=== PATIENT | female | born 1965 | race Caucasian/White ===

== ENCOUNTER 2017-09-16 19:03 | Inpatient (IN) | payer BC ==
[2017-09-16] MEDS: PROMETHAZINE 25 MG in IV NORMAL SALINE 50ML 50 ML IV (19:50)
[2017-09-16] MEDS: IV NORMAL SALINE 1000ML BAG 1,000 ML IV ×2 (19:55→21:21)
[2017-09-16 20:05] LABS: ADD MAN DIFF? NO
[2017-09-16 20:10] LABS: BASO % 0 % (0-3); EOS # 0.1 x10^3/uL (0.0-0.7); EOS % 3 % (0-3); HEMATOCRIT 40.5 % (36.0-47.0); HEMOGLOBIN 13.7 g/dL (12.0-15.5); LYMPH # 0.7 x10^3/uL (1.0-4.8); LYMPH % 17 % (24-48); MEAN CORPUSCULAR HEMOGLOBIN 28 pg (25-35); MEAN CORPUSCULAR HGB CONC 34 g/dL (31-37); MEAN CORPUSCULAR VOLUME 82 fL (79-100); MONO # 0.4 x10^3/uL (0.0-1.1); MONO % 11 % (0-9); NEUT # 2.9 x10^3uL (1.8-7.7); NEUT % 69 % (31-73); PLATELET COUNT 107 x10^3/uL (140-400); RED BLOOD COUNT 4.92 x10^6/uL (3.50-5.40); WHITE BLOOD COUNT 4.3 x10^3/uL (4.0-11.0)
[2017-09-16 20:11] LABS: BILIRUBIN,URINE SMALL (NEG); CLARITY,URINE CLEAR; COLOR,URINE YELLOW; GLUCOSE,URINE NEGATIVE (NEG); NITRITE,URINE NEGATIVE (NEG); PROTEIN,URINE NEGATIVE (NEG-TRACE)
[2017-09-16 20:17] LABS: INR 1.1 (0.8-1.1); PROTHROMBIN TIME PATIENT 13.2 SEC (11.7-14.0)
[2017-09-16 20:19] LABS: ANION GAP 8 (6-14); BLOOD UREA NITROGEN 12 mg/dL (7-20); CALCIUM 9.2 mg/dL (8.5-10.1); CARBON DIOXIDE 27 mmol/L (21-32); CHLORIDE 100 mmol/L (98-107); CREATININE 0.8 mg/dL (0.6-1.0); GLUCOSE 119 mg/dL (70-99); SODIUM 135 mmol/L (136-145)
[2017-09-16 20:24] LABS: BACTERIA,URINE FEW /HPF (0-FEW); HYALINE CASTS, URINE FEW /HPF; SQUAMOUS EPITHELIAL CELL,UR MOD /LPF
[2017-09-16 20:25] LABS: TROPONINI 0.318 ng/mL (0.000-0.055)
[2017-09-16 20:25] LABS: ALBUMIN 3.3 g/dL (3.4-5.0); ALK PHOS 140 U/L (46-116); ALT (SGPT) 54 U/L (14-59); AST (SGOT) 38 U/L (15-37); DIRECT BILIRUBIN 0.2 mg/dL (0.0-0.2); LIPASE 92 U/L (73-393); MAGNESIUM 1.9 mg/dL (1.8-2.4); TOTAL BILIRUBIN 0.7 mg/dL (0.2-1.0); TOTAL PROTEIN 7.2 g/dL (6.4-8.2)
[2017-09-16 20:34] LABS: NT-PRO BNP 175 pg/mL (0-124)
[2017-09-16 20:35] LABS: CKMB MASS < 0.5 ng/mL (0.0-3.6); CREATINE KINASE 33 U/L (26-192)
[2017-09-16] MEDS: IOHEXOL 300 MG/ML 100ML VIAL. IV (20:41)
[2017-09-16] MEDS ORDERED: CONTRAST GIVEN MC (20:45)
[2017-09-16] MEDS: diphenhydrAMINE 50 MG/ML VIAL IVP (21:21)
[2017-09-16] MEDS: PROCHLORPERAZINE 10 MG/2 ML VIAL. IV (21:21)
[2017-09-16] MEDS: fentaNYL PF VIAL 100 MCG/2 ML VIAL IV ×2 (21:58→23:02)
[2017-09-17] MEDS: fentaNYL PF VIAL 100 MCG/2 ML VIAL IV (01:47)
[2017-09-17 02:23] LABS: TROPONINI 0.308 ng/mL (0.000-0.055)
[2017-09-17 05:07] LABS: ADD MAN DIFF? NO
[2017-09-17 05:20] LABS: BASO % 1 % (0-3); EOS # 0.1 x10^3/uL (0.0-0.7); EOS % 2 % (0-3); HEMATOCRIT 36.5 % (36.0-47.0); HEMOGLOBIN 12.3 g/dL (12.0-15.5); LYMPH # 0.9 x10^3/uL (1.0-4.8); LYMPH % 23 % (24-48); MEAN CORPUSCULAR HEMOGLOBIN 28 pg (25-35); MEAN CORPUSCULAR HGB CONC 34 g/dL (31-37); MEAN CORPUSCULAR VOLUME 83 fL (79-100); MONO # 0.5 x10^3/uL (0.0-1.1); MONO % 13 % (0-9); NEUT # 2.4 x10^3uL (1.8-7.7); NEUT % 62 % (31-73); PLATELET COUNT 94 x10^3/uL (140-400); WHITE BLOOD COUNT 3.9 x10^3/uL (4.0-11.0)
[2017-09-17 05:47] LABS: ALBUMIN/GLOBULIN RATIO 0.8 (1.0-1.7); ALK PHOS 120 U/L (46-116); ALT (SGPT) 46 U/L (14-59); ANION GAP 6 (6-14); AST (SGOT) 29 U/L (15-37); BLOOD UREA NITROGEN 9 mg/dL (7-20); BUN/CREATININE RATIO 15 (6-20); CALCIUM 8.6 mg/dL (8.5-10.1); CARBON DIOXIDE 28 mmol/L (21-32); CHLORIDE 103 mmol/L (98-107); CREATININE 0.6 mg/dL (0.6-1.0); GFR 104.6; GLUCOSE 110 mg/dL (70-99); POTASSIUM 4.1 mmol/L (3.5-5.1); SODIUM 137 mmol/L (136-145); TOTAL BILIRUBIN 0.6 mg/dL (0.2-1.0); TOTAL PROTEIN 6.9 g/dL (6.4-8.2)
[2017-09-17 05:57] LABS: TROPONINI 0.325 ng/mL (0.000-0.055)
[2017-09-17] MEDS: IV NORMAL SALINE 1000ML BAG 1,000 ML IV (15:00)
[2017-09-17] MEDS: cefTRIAXone IV Push 1 GM VIAL. IVP (15:17)
[2017-09-17] MEDS: PANTOPRAZOLE 40 MG TABLET.DR. PO (17:37)
[2017-09-17] MEDS: LACTOBACILLUS RHAMNOSUS GG 1 CAPSULE. PO (20:55)
[2017-09-18] MEDS: fentaNYL PF VIAL 100 MCG/2 ML VIAL IV (02:33)
[2017-09-18] MEDS: IV NORMAL SALINE 1000ML BAG 1,000 ML IV (02:35)
[2017-09-18 05:22] LABS: ADD MAN DIFF? NO
[2017-09-18 05:28] LABS: BASO % 0 % (0-3); EOS # 0.1 x10^3/uL (0.0-0.7); EOS % 2 % (0-3); HEMATOCRIT 36.5 % (36.0-47.0); HEMOGLOBIN 12.5 g/dL (12.0-15.5); LYMPH # 1.2 x10^3/uL (1.0-4.8); LYMPH % 20 % (24-48); MEAN CORPUSCULAR HEMOGLOBIN 28 pg (25-35); MEAN CORPUSCULAR HGB CONC 34 g/dL (31-37); MEAN CORPUSCULAR VOLUME 82 fL (79-100); MONO # 0.6 x10^3/uL (0.0-1.1); MONO % 10 % (0-9); NEUT # 3.9 x10^3uL (1.8-7.7); NEUT % 67 % (31-73); PLATELET COUNT 110 x10^3/uL (140-400); RED BLOOD COUNT 4.46 x10^6/uL (3.50-5.40); RED CELL DISTRIBUTION WIDTH 13.5 % (11.5-14.5); WHITE BLOOD COUNT 5.8 x10^3/uL (4.0-11.0)
[2017-09-18 05:42] LABS: ANION GAP 10 (6-14); BLOOD UREA NITROGEN 7 mg/dL (7-20); CALCIUM 8.4 mg/dL (8.5-10.1); CARBON DIOXIDE 27 mmol/L (21-32); CHLORIDE 101 mmol/L (98-107); CREATININE 0.6 mg/dL (0.6-1.0); GFR 104.6; GLUCOSE 108 mg/dL (70-99); POTASSIUM 3.7 mmol/L (3.5-5.1); SODIUM 138 mmol/L (136-145)
[2017-09-18 06:58] LABS: SEDIMENTATION RATE 30 (0-25)
[2017-09-18] MEDS: LACTOBACILLUS RHAMNOSUS GG 1 CAPSULE. PO ×2 (08:19→20:57)
[2017-09-18] MEDS: PANTOPRAZOLE 40 MG TABLET.DR. PO (08:19)
[2017-09-18] MEDS: METOPROLOL TART IMMED RELEASE 25 MG TABLET. PO ×2 (08:55→20:57)
[2017-09-18] MEDS: dilTIAZem IV PUSH 25 MG/5 ML VIAL IVP ×2 (10:40→11:37)
[2017-09-18] MEDS: IV NORMAL SALINE 500ML BAG 500 ML IV (11:15)
[2017-09-18] MEDS: cefTRIAXone IV Push 1 GM VIAL. IVP (13:27)
[2017-09-18] MEDS: AMIODARONE 150 MG in IV DEXTROSE 5% 100 ML IV (14:00)
[2017-09-18] MEDS: AMIODARONE 900 MG in IV DEXTROSE 5% 500 ML IV (14:03)
[2017-09-18] MEDS ORDERED: diphenhydrAMINE 50 MG/ML VIAL IM (14:15)
[2017-09-18] MEDS: HYDROCORTISONE SOD SUCC/PF 100 MG/2 ML VIAL. IV (14:19)
[2017-09-18] MEDS: diphenhydrAMINE 50 MG/ML VIAL IVP (14:25)
[2017-09-18] MEDS: DIGOXIN IV 500 MCG/2 ML AMPUL. IV ×2 (14:29→18:14)
[2017-09-19] MEDS: IV NORMAL SALINE 1000ML BAG 1,000 ML IV (02:50)
[2017-09-19] MEDS: PANTOPRAZOLE 40 MG TABLET.DR. PO (08:27)
[2017-09-19] MEDS: METOPROLOL TART IMMED RELEASE 25 MG TABLET. PO ×2 (08:27→20:59)
[2017-09-19] MEDS: LACTOBACILLUS RHAMNOSUS GG 1 CAPSULE. PO ×2 (08:27→20:59)
[2017-09-19] MEDS: DIGOXIN 125 MCG TABLET. PO (08:28)
[2017-09-19] MEDS: PROCHLORPERAZINE 10 MG/2 ML VIAL. IV ×2 (08:32→18:24)
[2017-09-19] MEDS: cefTRIAXone IV Push 1 GM VIAL. IVP (13:21)
[2017-09-19] MEDS: POLYETHYLENE GLYCOL 3350 17 GM PACKET. PO (13:21)
[2017-09-19] MEDS: fentaNYL PF VIAL 100 MCG/2 ML VIAL IV ×2 (14:23→19:50)
[2017-09-19] MEDS: ALPRAZolam 0.5 MG TABLET PO (15:35)
[2017-09-19] MEDS ORDERED: oxyCODONE/APAP 5/325 1 TAB TABLET PO (20:15)
[2017-09-20] MEDS: IV NORMAL SALINE 1000ML BAG 1,000 ML IV (01:45)
[2017-09-20 04:07] LABS: ADD MAN DIFF? NO
[2017-09-20 04:13] LABS: BASO % 0 % (0-3); EOS # 0.2 x10^3/uL (0.0-0.7); EOS % 3 % (0-3); HEMATOCRIT 36.7 % (36.0-47.0); HEMOGLOBIN 12.7 g/dL (12.0-15.5); LYMPH # 1.8 x10^3/uL (1.0-4.8); LYMPH % 21 % (24-48); MEAN CORPUSCULAR HEMOGLOBIN 28 pg (25-35); MEAN CORPUSCULAR HGB CONC 35 g/dL (31-37); MEAN CORPUSCULAR VOLUME 82 fL (79-100); MONO # 0.7 x10^3/uL (0.0-1.1); MONO % 9 % (0-9); NEUT # 5.6 x10^3uL (1.8-7.7); NEUT % 67 % (31-73); PLATELET COUNT 156 x10^3/uL (140-400); RED CELL DISTRIBUTION WIDTH 13.6 % (11.5-14.5); WHITE BLOOD COUNT 8.4 x10^3/uL (4.0-11.0)
[2017-09-20 04:48] LABS: ALBUMIN 2.9 g/dL (3.4-5.0); ALBUMIN/GLOBULIN RATIO 0.7 (1.0-1.7); ALK PHOS 113 U/L (46-116); ALT (SGPT) 47 U/L (14-59); ANION GAP 11 (6-14); AST (SGOT) 20 U/L (15-37); BLOOD UREA NITROGEN 7 mg/dL (7-20); BUN/CREATININE RATIO 12 (6-20); CALCIUM 8.6 mg/dL (8.5-10.1); CARBON DIOXIDE 26 mmol/L (21-32); CHLORIDE 99 mmol/L (98-107); CREATININE 0.6 mg/dL (0.6-1.0); GFR 104.6; GLUCOSE 109 mg/dL (70-99); POTASSIUM 3.5 mmol/L (3.5-5.1); SODIUM 136 mmol/L (136-145); TOTAL BILIRUBIN 0.6 mg/dL (0.2-1.0); TOTAL PROTEIN 7.2 g/dL (6.4-8.2)
[2017-09-20] MEDS: LACTOBACILLUS RHAMNOSUS GG 1 CAPSULE. PO (08:05)
[2017-09-20] MEDS: DIGOXIN 125 MCG TABLET. PO (08:05)
[2017-09-20] MEDS: METOPROLOL TART IMMED RELEASE 25 MG TABLET. PO (08:06)
[2017-09-20] MEDS: PANTOPRAZOLE 40 MG TABLET.DR. PO (08:06)
[2017-09-20] MEDS: cefTRIAXone IV Push 1 GM VIAL. IVP (12:25)
[2017-09-20 18:20] LABS: ANA INTERP Negative (.)
== END 2017-09-20 18:04 | disposition home or self-care (01) | DRG 690 ==
LOC: ER 19:03 → 2 SOUTH 23:04
DX: N39.0 Urinary tract infection, site not specified (principal); I48.91 Unspecified atrial fibrillation; F41.9 Anxiety disorder, unspecified; I10 Essential (primary) hypertension; E86.0 Dehydration; Z82.49 Family history of ischemic heart disease and other diseases of the circulatory system; Z85.41 Personal history of malignant neoplasm of cervix uteri; Z90.710 Acquired absence of both cervix and uterus; Z90.49 Acquired absence of other specified parts of digestive tract; Z88.2 Allergy status to sulfonamides
CPT/HCPCS: 36415; 74177; 80048; 80053; 80076; 81001; 82553; 83605; 83690; 83735; 83880; 84484; 85025; 85610; 85651; 86038; 87086; 93005; 96374; 96375; 96376; 99285; 99285-25; J0282; J0696; J0780; J1160; J1200; J1720; J2550; J3010; J3490; J7030; J7040; Q9967